=== PATIENT | male | born 1955 | race Caucasian/White ===

== ENCOUNTER → 2017-02-20 | Day surgery (SDC) | payer OTHER ==
[~2017-02-20] VITALS: Ht 185.4 cm; Wt 100.0 kg
[~2017-02-20] MED LIST: 0.9% Sodium Chloride 1,000 ML IV SCH; Sodium Chloride LOK Flush 10 mL Syringe IV PRN; fentaNYL-PF 50 mCg/mL 2 mL Inj IVPUSH PRN
[2017-02-20 09:48] VITALS: BP 135/88; PULSE 79; RESP 16; O2SAT 98
[2017-02-20 11:09] VITALS: BP 143/91; PULSE 63; RESP 16; O2SAT 97
[2017-02-20 11:20] VITALS: BP 160/90; PULSE 66; RESP 16; O2SAT 96
[2017-02-20 11:27] VITALS: BP 142/95; PULSE 66; RESP 16; O2SAT 97
--- NOTE | 2017-02-20 11:38 | ENDO ---
[address] [address] ENDOSCOPY PROCEDURE PATIENT: BENTLEY ALMEIDA : 1955 MR#: [id number] ADMIT: 02/20/2017 JOB ID: [id number] DATE OF SERVICE: 02/20/2017 PREOPERATIVE DIAGNOSIS: Personal history of colon polyps. POSTOPERATIVE DIAGNOSIS: 1. Transverse colon polyp. 2. Rectal polyp. 3. Sigmoid diverticulosis. PROCEDURE: Colonoscopy to cecum with cold forceps polypectomy x2. SURGEON: Juan Albrecht MD/Kaushal Calderon MD. INDICATIONS: A 61-year-old man who is here for screening colonoscopy. Ten years ago he actually had a small sigmoid tubular adenoma. He is here for colorectal cancer screening. FINDINGS: He had a good prep. He has sigmoid diverticulosis. Two 1-2 mm polyps were identified; one in the distal transverse colon and one in the rectum. Both were biopsied and submitted to Pathology. 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 PROCEDURE: The procedure and sedation plan was discussed with the patient and nursing staff, and a procedural time out was held and informed consent obtained. He received 5 mg of Versed and 125 mcg of fentanyl. A digital rectal exam was performed and the Olympus PCF-H180AL video colonoscope was passed transanally and advanced to the cecum with clear visualization of the appendiceal orifice, the ileocecal valve, and cecal landmarks. The terminal ileum was not intubated. The scope was withdrawn over 16 minutes and 15 seconds. Retroflexed views of the rectum were obtained. IMPRESSION: 1. Two small colorectal polyps. 2. Sigmoid diverticulosis. PLAN: I will call him with results of his histology. If he has no adenomatous tissue then recommend a colonoscopy in 10 years. [facility]
--- NOTE | 2017-02-21 18:48 | PATH ---
SURGICAL PATHOLOGY Attending Physician:Sachi Girard CASE STATUS: Signed Out PATIENT NAME: BENTLEY ALMEIDA PID: [id number] : 1955 DATE COLLECTED:02/20/2017 21:58 SPECIMEN: 1: Colon, Polyp 2: Rectum, Biopsy CLINICAL HISTORY: 1). TRANSVERSE COLON POLYP X1 2). RECTAL POLYP FINAL DIAGNOSIS: 1.TRANSVERSE COLON, POLYP, BIOPSY: COLONIC MUCOSA WITH SURFACE HYPERPLASTIC-TYPE CHANGES. Negative for dysplasia and malignancy. 2.RECTUM, POLYP, BIOPSY: HYPERPLASTIC POLYP. ICD10 K62.1 K63.5 GROSS DESCRIPTION: Received two formalin-filled containers, each labeled with the patient' s name. 1. Received in formalin, labeled with the patient' s name and "transverse colon polyp x1", is one fragment of fong, soft tissue measuring 0.3 x 0.2 x 0.1 cm. The fragment is totally submitted in cassette 1A. 2. Received in formalin, labeled with the patient' s name and "rectal polyp x1", are two fragments of fong, soft tissue ranging from 0.1 x 0.1 x 0.1 cm to 0.3 x 0.3 x 0.2 cm. The fragments are totally submitted in cassette 2A. [id number]) MICRO DESCRIPTION: See diagnosis. ICD-9 CODES: CPT CODES: 1: 62848 2: 27157 Electronically Signed Out Janice Martinez MD [facility] Pathology [facility] [address], [place] [address] Technical component performed at [facility], [facility] [address], [place], [address]
== END | disposition home or self-care (01) ==
LOC: END 00:53
PROVIDERS: ATTEND Surgery
DX: Z12.11 Encounter for screening for malignant neoplasm of colon (principal); Z86.010 Personal history of colon polyps; K62.1 Rectal polyp; K63.5 Polyp of colon; K57.30 Diverticulosis of large intestine without perforation or abscess without bleeding; E78.5 Hyperlipidemia, unspecified
CPT/HCPCS: 45380; 99153; G0500; J2250; J3010; J7030